=== PATIENT | female | born 1975 | race Caucasian/White ===

== ENCOUNTER 2023-05-22 04:38 | Emergency (ER) | payer OTHER ==
[~2023-05-22] VITALS: Ht 175.3 cm; Wt 122.0 kg
[2023-05-22 05:20] LABS: BILIRUBIN,URINE SMALL (Neg); CLARITY,URINE TURBID (Clear); COLOR,URINE YELLOW (Yellow); GLUCOSE, URINE NEGATIVE (Neg); KETONES,URINE NEGATIVE (Neg); LEUKOCYTE ESTERASE ,URINE NEGATIVE (Neg); NITRITES, URINE NEGATIVE (Neg); OCCULT BLOOD,URINE TRACE-INTACT (Neg); PROTEIN,URINE TRACE mg/dl (Neg); UROBILINOGEN,URINE 0.2 E.U/dL (0.2-1.0)
[2023-05-22 05:21] LABS: URINE HCG NEGATIVE (NEG)
[2023-05-22 05:26] LABS: ALANINE AMINOTRANSFERASE 45 U/L (12-78); ALBUMIN 4.2 G/DL (3.4-5.0); ALBUMIN/GLOBULIN RATIO 0.9 (1.1-1.5); ALKALINE PHOSPHATASE 74 IU/L (46-116); ANION GAP 12 (8-16); ASPARTATE AMINO TRANSFERASE 20 U/L (10-37); BILIRUBIN,TOTAL 0.4 MG/DL (0.1-1.0); BLOOD UREA NITROGEN 15 MG/DL (7-18); BUN/CREATININE RATIO 10.2 (10.0-20.0); CALCIUM 9.7 MG/DL (8.5-10.1); CHLORIDE 97 MMOL/L (99-107); CREATININE 1.47 MG/DL (0.40-0.90); GLUCOSE 125 MG/DL (70-104); LIPASE 68 U/L (16-77); POTASSIUM 3.4 MMOL/L (3.5-5.1); SODIUM 136 MMOL/L (135-145); TOTAL PROTEIN 8.7 G/DL (6.4-8.2); eCRCL 49 ML/MIN; eGFR 38 ML/MIN
[2023-05-22] MEDS: normal saline 1000ML IV soln IVB ONE ×2 (05:28→09:02)
[2023-05-22] MEDS: morphine 4 MG/ML inj SYRINge IV PRN (05:30)
[2023-05-22] MEDS: ondansetron/PF 4mg/2ml inj IV ONE (05:31)
[2023-05-22 05:41] LABS: UA COLLECTION TYPE CLN CATCH MIDSTREAM
[2023-05-22 05:42] LABS: SQUAMOUS EPITHELIAL CELL,UR MANY /LPF (FEW)
[2023-05-22 05:43] LABS: BACTERIA,URINE 2+ /HPF (Neg); RBC,URINE 0-2 /HPF (0-2); WBC,URINE 0-4 /HPF (0-4)
[2023-05-22 06:06] LABS: BASOPHILS # (AUTO) 0.1 X10'3 (0-0.2); BASOPHILS % (AUTO) 0.4 % (0-1); EOSINOPHILS # (AUTO) 0.1 X10'3 (0-0.9); EOSINOPHILS % (AUTO) 0.8 % (0-6); MONOCYTES # (AUTO) 1.1 X10'3 (0-0.9)
[2023-05-22 06:08] LABS: HEMATOCRIT 47.2 % (35.0-45.0); HEMOGLOBIN 16.2 g/dl (12.0-16.0); LYMPHOCYTES # (AUTO) 3.3 X10'3 (1.1-4.8); LYMPHOCYTES % (AUTO) 19.7 % (21-51); MEAN CORPUSCULAR HEMOGLOBIN 30.6 PG (27.0-31.0); MEAN CORPUSCULAR HGB CONC 34.5 g/dL (33.0-36.5); MEAN CORPUSCULAR VOLUME 88.9 FL (78-98); MEAN PLATELET VOLUME 7.7 FL (7.4-10.4); MONOCYTES % (AUTO) 6.4 % (2-12); NEUTROPHILS # (AUTO) 12.3 X10'3 (1.8-7.7); NEUTROPHILS % (AUTO) 72.7 % (42-75); PLATELET COUNT 624 X10'3 (140-440); RED BLOOD COUNT 5.31 X10'6 (4.20-5.60); RED CELL DISTRIBUTION WIDTH 12.7 % (11.5-14.5); WHITE BLOOD COUNT 16.9 X10'3 (4.5-11.0)
[2023-05-22] MEDS ORDERED: ONDA4TAB12 PO (08:09)
[2023-05-22] MEDS: glycopyrrolate 0.2mg/ml inj IV ONE (09:02)
[2023-05-22] MEDS: diphenhydrAMINE 50 mg/ml inj IV ONE (09:02)
[2023-05-22] MEDS: metoclopramide 5 mg/ml inj IV ONE (09:02)
[2023-05-22 10:51] VITALS: BP 148/81; PULSE 56; RESP 20; TEMP 98.4; O2SAT 99
== END 2023-05-22 11:24 | disposition home or self-care (01) ==
LOC: ER 04:38
DX: R11.2 Nausea with vomiting, unspecified (principal); R10.33 Periumbilical pain; Z79.899 Other long term (current) drug therapy
CPT/HCPCS: 74176; 80053; 81001; 81025; 83690; 85025; 96361; 96374; 96375; 96376; 99285; J1200; J2270; J2405; J2765; J3490; J7030